=== PATIENT | female | born 1995 | race African-American/Black ===

== ENCOUNTER 2018-12-20 08:05 | Day surgery (SDC) | payer OTHER ==
[~2018-12-20] VITALS: Ht 162.6 cm; Wt 74.8 kg
[~2018-12-20 08:05] MED LIST: CELE1CAP7 PO; IBUP-1022 PO; LOPE1CAP5 PO; LR 1,000 ML IV ONE; ONDA4TAB5 PO; ceFAZolin SOD 2 GM in IV 1 EA IV ONE
[2018-12-20] MEDS ORDERED: LIDOCAINE 1% MDV 20ML VIAL As Ordered ONE (08:09)
[2018-12-20] MEDS ORDERED: BUPIVACAINE HCL 0.5% 10 ML VIAL As Ordered ONE (08:09)
[2018-12-20] MEDS ORDERED: BUPIVACAINE LIPOSOME/PF 1.3% 20ML VIAL (13.3MG/ML)(EXPAREL)(C9290 PER1MG) As Ordered ONE (08:25)
[2018-12-20] MEDS ORDERED: fentaNYL 100 MCG/2 ML INJECTION (J3010) As Ordered ONE (08:46)
[2018-12-20] MEDS ORDERED: LIDOCAINE 2% INJ 100 MG/5 ML SDV (FOR ANES.) As Ordered ONE (08:46)
[2018-12-20] MEDS ORDERED: PROPOFOL 200 MG/20 ML VIAL As Ordered ONE ×2 (08:46→10:47)
[2018-12-20] MEDS ORDERED: dexameTHASONE 4 MG/ML 1ML VIAL (J1100) As Ordered ONE ×2 (08:47→09:43)
[2018-12-20] MEDS ORDERED: ONDANSETRON 4MG/2ML VIAL (J2405) As Ordered ONE (08:47)
[2018-12-20] MEDS ORDERED: MIDAZOLAM INJ 2 MG/2 ML VIAL (J2250) As Ordered ONE (08:47)
--- NOTE | 2018-12-20 12:08 | RO ---
DATE OF PROCEDURE: 12/20/2018 PREPROCEDURE DIAGNOSIS: Right foot bunion. POSTPROCEDURE DIAGNOSIS: Right foot bunion. PROCEDURE: Right foot bunionectomy with first metatarsal osteotomy. SURGEON: Latrell Hummel DPM FLOWER STRIPPER: ANESTHESIA: Monitored anesthesia care with preoperative injection of 15 mL of 1:1 mixture of 1% Lidocaine plain and 0.5% Marcaine plain. ESTIMATED BLOOD LOSS: Minimal. MATERIALS: Arthrex 3.5 headless compression screws, 3-0 and 4-0 Vicryl, 4-0 nylon. INJECTABLES: 1 mL of Decadron 4 mg/mL and 10 mL of Exparel. COMPLICATIONS: None. CONDITION: Stable. INDICATION: Mata Acevedo is a 23-year-old female who presents to the office with painful right bunion. She presents today for surgical correction. DESCRIPTION OF PROCEDURE: The patient, site and side were identified in preoperative holding area. Consent was reviewed. Risks, benefits, complications and alternatives to the procedure were explained to the patient in detail and all questions were answered. DESCRIPTION OF PROCEDURE: The patient was brought to the operating room and laid in supine position on the operating room table. Monitored anesthesia care was delivered by the anesthesia team. Preoperative injection of 15 mL of 1:1 mixture of 1% Lidocaine plain and 0.5% Marcaine plain were injected into the right foot. The right foot was prepped and draped in a normal sterile fashion. Tourniquet was applied to the right ankle and inflated to 250 mmHg. The patient received Ancef preoperatively. Dorsomedial incision was drawn and carried through with a #15 blade. Dissection was carried down through the first metatarsophalangeal joint capsule. Bovie was used to cauterize small vessels along the way. Deep capsulotomy was performed exposing the metatarsal head. Following this, a lateral release was performed releasing the lateral capsule, adductors tendons, as well as ligaments, McGlamry elevator was used to release the plantar structures of the metatarsal head. Following this, the sagittal saw was used to resect the medial eminence and osteotomy was performed in the metatarsal head, transposing it laterally. This was fixated with an Arthrex 3.5 headless compression screw. Bone ledges were resected with sagittal saw and smoothed with a rasp. The site was irrigated with normal saline. A small wedge of capsule was removed from the medical capsule and capsular repair was performed with 3-0 Vicryl. Subcutaneous closure with 4-0 Vicryl. Skin closure with 4-0 nylon. 1 mL of Decadron was injected and 10 mL of Exparel was injected postoperatively. Sterile dressing was applied. The tourniquet was inflated. THe patient was brought to the postanesthesia care unit (PACU) stable and neurovascular status intact. She will be partial weightbearing. She will followup in 2 days.
[2018-12-20 12:15] VITALS: BP 114/56
== END 2018-12-20 12:20 | disposition home or self-care (01) ==
LOC: M SDC 08:05
PROVIDERS: ATTEND Podiatrist Foot & Ankle Surgery
DX: M21.611 Bunion of right foot (principal)
CPT/HCPCS: 28296; 81025; 88300; C1713; C9290; J0690; J1100; J2250; J2405; J3010

== ENCOUNTER 2019-06-03 21:07 | Emergency (ER) | payer OTHER ==
[~2019-06-03] VITALS: Ht 162.6 cm; Wt 73.6 kg
[~2019-06-03 21:07] MED LIST changes: -LR 1,000 ML IV ONE; +ONDA-83 PO; -ONDA4TAB5 PO; -ceFAZolin SOD 2 GM in IV 1 EA IV ONE
[2019-06-03 21:08] VITALS: BP 133/92
[2019-06-03] MEDS ORDERED: DERMABOND TOPICAL SKIN ADHESIVE TOP ONE (21:30)
== END 2019-06-03 21:58 | disposition home or self-care (01) ==
LOC: M ED 21:07
DX: S61.213A Laceration without foreign body of left middle finger without damage to nail, initial encounter (principal); W26.0XXA Contact with knife, initial encounter; Y92.018 Other place in single-family (private) house as the place of occurrence of the external cause

== ENCOUNTER 2020-01-02 13:52 | Emergency (ER) | payer OTHER ==
[~2020-01-02] VITALS: Ht 165.1 cm; Wt 77.0 kg
[2020-01-02] MEDS ORDERED: MIRE1IUD IU (14:33)
[2020-01-02 14:37] LABS: BASO % 0.6 % (0.0-1.0); EOS # 0.1 10^3/uL (0.0-0.5); EOS % 1.9 % (0.0-3.0); HEMOGLOBIN 13.3 g/dl (12.0-15.5); LYMPH # 2.1 10^3/uL (1.5-5.0); LYMPH % 33.1 % (24.0-44.0); MEAN CORPUSCULAR HEMOGLOBIN 30.5 pg (27.0-33.0); MEAN CORPUSCULAR HGB CONC 31.7 g/dl (32.0-36.5); MEAN CORPUSCULAR VOLUME 96.3 fl (80.0-96.0); MONO # 0.6 10^3/uL (0.0-0.8); MONO % 8.8 % (0.0-5.0); NEUTROPHILS # 3.6 10^3/uL (1.5-8.5); NEUTROPHILS % 55.4 % (36.0-66.0); PLATELET COUNT, AUTOMATED 292 10^3/uL (150-450); RED BLOOD COUNT 4.36 10^6/uL (4.00-5.40); WHITE BLOOD COUNT 6.5 10^3/uL (4.0-10.0)
[2020-01-02 14:45] LABS: APPEARANCE, URINE CLEAR (CLEAR); BACTERIA, URINE AUTO NEGATIVE (NEGATIVE); BILIRUBIN, URINE AUTO NEGATIVE (NEGATIVE); BLOOD, URINE BLOOD NEGATIVE (NEGATIVE); COLOR, URINE YELLOW (YELLOW); GLUCOSE, URINE (UA) AUTO NEGATIVE (NEGATIVE); KETONE, URINE AUTO NEGATIVE (NEGATIVE); LEUKOCYTE ESTERASE, URINE AUTO NEGATIVE (NEGATIVE); NITRITE, URINE AUTO NEGATIVE (NEGATIVE); PROTEIN, URINE AUTO NEGATIVE (NEGATIVE); RBC, URINE AUTO 1 /HPF (0-3); SPECIFIC GRAVITY URINE AUTO 1.021 (1.002-1.035); SQUAMOUS EPITHELIAL CELL UR AU 1 /HPF (0-6); UROBILINOGEN, URINE AUTO 0.2 mg/dL (0.0-2.0); WBC, URINE AUTO 0 /HPF (0-3)
--- NOTE | 2020-01-02 15:26 | REP ---
INDICATION: rlq pain/iud in/ ro ectopic. COMPARISON: None. TECHNIQUE: Transabdominal and endovaginal probes are utilized. FINDINGS: The bladder was empty. Uterus is seen anteverted. It measures 9.4 x 3 3.2 x 4.7 cm. There is a central endometrial echogenic stripe with thickness of 4.6 mm. There is an IUD in place. No fluid the endometrial cavity or visible gestational sac, yolk sac or pole. The right ovary is 3.1 x 2.3 x 2.9 cm with Doppler tracings show resistive index 0.40. Within the right ovary is 1.6 x 1.4 x 1.4 cm heterogeneous, hypoechoic focus without color flow. It could be a solid lesion or hemorrhagic follicle. The left ovary is 2 x 1.9 x 1.4 cm. Has Doppler interrogation showed resistive index 0.48. Right ovarian volume 11 cc, left 3 cc. No fluid adjacent either ovary or in the cul-de-sac. IMPRESSION: : 1. An IUD in place with no evidence of a gestational sac, yolk sac, pole or fluid in the endometrial cavity. Do not have an HCG available yet today. The patient stated to the technologist that yesterday it was 49. 2. Right ovary with a 1.6 cm hypoechoic heterogeneous area that could be a solid lesion or other finding such as a hemorrhagic follicle. No adjacent free fluid near the ovaries or in the cul-de-sac. <Electronically signed by Emery Hayes > 01/02/20 [id number]
[2020-01-02 16:16] VITALS: BP 108/68
--- NOTE | 2020-01-02 16:47 | CR.PDOC ---
General Date of Consultation: Jan 02, 2020 Consultation REASON FOR CONSULTATION/CHIEF COMPLAINT: with IUD in place. HISTORY OF PRESENT ILLNESS: 24 yo LMP of 12/01/2019 who presents with right sided abdominal pain and a positive home test. patient had the IUD placed 6 months ago this week she started feeling nausea and took a test (x7) which was positive. today the reports feeling some abdominal pain. she denies any vaginal bleeding. she has no other concerns. ALLERGIES: denies. HOME MEDICATIONS: none PAST MEDICAL HISTORY: Denies PAST SURGICAL HISTORY: 1.Dominguez Downing FAMILY HISTORY: non contributory SOCIAL HISTORY: Marital status Children: 1 Employment: active duty Tobacco use:denies ETOH: denies Illicit drug use: denies IV drug use: denies REVIEW OF SYSTEMS: 12 system review negative PHYSICAL EXAMINATION: VITAL SIGNS: Please see below. GENERAL APPEARANCE: well appearing RESPIRATORY: normal work of breathing CARDIOVASCULAR: regular rate ABDOMEN: non tender to palpation EXTREMITIES: grossly normal GUEST EXPERIENCE SPECIALIST: Normal anatomy of external female genitalia. IUD String noted through the cervical os. the string grasped with forceps and IUD removed entirely without issues. patient tolerated procedure well. LABORATORY DATA: HCG 201. Rads COMPARISON: None. TECHNIQUE: Transabdominal and endovaginal probes are utilized. FINDINGS: The bladder was empty. Uterus is seen anteverted. It measures 9.4 x 3 3.2 x 4.7 cm. There is a central endometrial echogenic stripe with thickness of 4.6 mm. There is an IUD in place. No fluid the endometrial cavity or visible gestational sac, yolk sac or pole. The right ovary is 3.1 x 2.3 x 2.9 cm with Doppler tracings show resistive index 0.40. Within the right ovary is 1.6 x 1.4 x 1.4 cm heterogeneous, hypoechoic focus without color flow. It could be a solid lesion or hemorrhagic follicle. The left ovary is 2 x 1.9 x 1.4 cm. Has Doppler interrogation showed resistive index 0.48. Right ovarian volume 11 cc, left 3 cc. No fluid adjacent either ovary or in the cul-de-sac. IMPRESSION: : 1. An IUD in place with no evidence of a gestational sac, yolk sac, pole or fluid in the endometrial cavity. Do not have an HCG available yet today. The patient stated to the technologist that yesterday it was 49. 2. Right ovary with a 1.6 cm hypoechoic heterogeneous area that could be a solid lesion or other finding such as a hemorrhagic follicle. No adjacent free fluid near the ovaries or in the cul-de-sac ASSESSMENT/PLAN: 24 yo LMP of 12/01/2019 with of Unknown loca tion who get with Mirena IUD in Place. hemodynamically stable. benign abdominal exam- not surgical. normal vitals. 1. with IUD in place- The IUD was removed without issues in the ED. Discussed with patient that she is at increased risk of having an ectopic because she had her IUD when she become . US today without IUP ( Which is expected with a quant level of 201), and saw a possible hemorrhagic cyst on the right side. discussed with patient that importance of her coming to her F/U appointment of Tuesday to f/u her Quant. LAB ORDER SENT for patient to obtain before she is comes for her appointment on Tuesday. she expressed understanding. 2. Abdominal pain- non surgical abdomen. okay to continue monitoring at home.. 3. F/U in 48hrs Vital Signs/I&O Vital Signs Date Time Temp Pulse Resp B/P (MAP) Pulse Ox O2 Delivery O2 Flow Rate FiO2 01/02/20 16:16 97.8 53 18 108/68 (81) 100 Room Air Laboratory Data Labs 24H Laboratory Tests 2 01/02/20 14:28: Immature Granulocyte % (Auto) 0.2, Neutrophils (%) (Auto) 55.4, Lymphocytes (%) (Auto) 33.1, Monocytes (%) (Auto) 8.8H, Eosinophils (%) (Auto) 1.9, Basophils (%) (Auto) 0.6, Neutrophils # (Auto) 3.6, Lymphocytes # (Auto) 2.1, Monocytes # (Auto) 0.6, Eosinophils # (Auto) 0.1, Basophils # (Auto) 0.0, Nucleated Red Blood Cells % (auto) 0.0, Human Chorionic Gonadotropin, Quant 201 01/02/20 14:34: Urine Color YELLOW, Urine Appearance CLEAR, Urine pH 6.0, Urine Specific [place] 1.021, Urine Protein NEGATIVE, Urine Glucose (Auto)(UA) NEGATIVE, Urine Ketones (Auto) NEGATIVE, Urine Blood NEGATIVE, Urine Nitrite NEGATIVE, Urine Bilirubin NEGATIVE, Urine Urobilinogen 0.2, Urine Leukocyte Esterase (Auto) NEGATIVE, Urine WBC (Auto) 0, Urine RBC (Auto) 1, Urine Hyaline Casts (Auto) 0, Urine Bacteria (Auto) NEGATIVE, Urine Squamous Epithelial Cells 1, Urine Sperm (Auto) CBC/BMP Laboratory Tests 01/02/20 14:28 Microbiology Microbiology 01/02/20 Urine Culture, Received Pending Allergies Coded Allergies: No Known Allergies (Unverified , 12/13/18) Home Medications Miscellaneous Medications Levonorgestrel (Mirena) 1 Each Iud, 20 MCG IU, (Reported) COOPER FALCON MD Jan 02, 2020 16:47
== END 2020-01-02 16:19 | disposition home or self-care (01) ==
LOC: M ED 13:52
DX: O99.891 Other specified diseases and conditions complicating pregnancy (principal); R10.2 Pelvic and perineal pain; Z97.5 Presence of (intrauterine) contraceptive device; Z77.098 Contact with and (suspected) exposure to other hazardous, chiefly nonmedicinal, chemicals; Z3A.00 Weeks of gestation of pregnancy not specified

== ENCOUNTER 2020-08-18 09:46 | Emergency (ER) | payer OTHER ==
[~2020-08-18] VITALS: Ht 162.6 cm; Wt 79.8 kg
[~2020-08-18 09:46] MED LIST changes: +MIRE1IUD IU
[2020-08-18 10:37] LABS: BASO % 0.6 % (0.0-1.0); EOS # 0.3 10^3/uL (0.0-0.5); EOS % 5.7 % (0.0-3.0); HEMATOCRIT 42.5 % (36.0-47.0); HEMOGLOBIN 13.4 g/dl (12.0-15.5); LYMPH % 40.3 % (24.0-44.0); MEAN CORPUSCULAR HGB CONC 31.5 g/dl (32.0-36.5); MEAN CORPUSCULAR VOLUME 95.3 fl (80.0-96.0); MONO # 0.4 10^3/uL (0.0-0.8); NEUTROPHILS # 2.2 10^3/uL (1.5-8.5); PLATELET COUNT, AUTOMATED 245 10^3/uL (150-450); RED BLOOD COUNT 4.46 10^6/uL (4.00-5.40); WHITE BLOOD COUNT 4.9 10^3/uL (4.0-10.0)
[2020-08-18 11:05] LABS: BLOOD UREA NITROGEN 9 MG/DL (7-18); CALCIUM LEVEL 8.8 MG/DL (8.5-10.1); CARBON DIOXIDE LEVEL 26 MEQ/L (21-32); CHLORIDE LEVEL 107 MEQ/L (98-107); CREATININE FOR GFR 0.62 MG/DL (0.55-1.30); GLOMERULAR FILTRATION RATE > 60.0 (>60); GLUCOSE, FASTING 93 MG/DL (70-100); POTASSIUM SERUM 4.1 MEQ/L (3.5-5.1); SODIUM LEVEL 138 MEQ/L (136-145)
--- NOTE | 2020-08-18 11:32 | REP ---
INDICATION: heavy vaginal bleeding 2 weeks COMPARISON: None. TECHNIQUE: Transabdominal pelvic ultrasound followed by transvaginal examination for better evaluation of the endometrium and adnexa with color Doppler evaluation of the ovaries. FINDINGS: Bladder is unremarkable and measures 5.3 x 4.7 x 9.0 cm. Heterogeneous anteverted uterus measures 8.8 x 3.5 x 4.7 cm. The endometrial complex measures 13 mm thickness thickness. A 6 x 5 x 5 mm endometrial polyp cannot be excluded. Bilateral ovaries are normal in appearance and vascularity without evidence for torsion. Right ovary measures 3.9 x 2.3 x 2.5 cm; R I = 0.62. Left ovary measures 2.8 x 1.9 x 2.1 cm; R I = 0.38. No pelvic fluid or adnexal mass lesion IMPRESSION: 1. Possible 6 mm endometrial polyp. 2. Otherwise normal appearance to the uterus and bilateral ovaries. No evidence for torsion. <Electronically signed by Lex Rodriguez > 08/18/20 [id number]
[2020-08-18] MEDS ORDERED: PROV10TA PO (11:49)
[2020-08-18 12:01] VITALS: BP 124/69
== END 2020-08-18 12:02 | disposition home or self-care (01) ==
LOC: M ED 09:46
DX: N93.8 Other specified abnormal uterine and vaginal bleeding (principal); N84.0 Polyp of corpus uteri; Z77.098 Contact with and (suspected) exposure to other hazardous, chiefly nonmedicinal, chemicals

== ENCOUNTER 2020-09-01 15:03 | Emergency (ER) | payer OTHER ==
[~2020-09-01] VITALS: Ht 162.6 cm; Wt 80.4 kg
[~2020-09-01 15:03] MED LIST changes: +PROV10TA PO
[2020-09-01 18:28] LABS: BASO # 0.1 10^3/uL (0.0-0.2); BASO % 0.8 % (0.0-1.0); EOS # 0.2 10^3/uL (0.0-0.5); EOS % 3.7 % (0.0-3.0); HEMOGLOBIN 12.3 g/dl (12.0-15.5); LYMPH # 2.6 10^3/uL (1.5-5.0); LYMPH % 39.3 % (24.0-44.0); MEAN CORPUSCULAR HEMOGLOBIN 30.1 pg (27.0-33.0); MEAN CORPUSCULAR HGB CONC 31.5 g/dl (32.0-36.5); MEAN CORPUSCULAR VOLUME 95.4 fl (80.0-96.0); MONO # 0.6 10^3/uL (0.0-0.8); MONO % 9.2 % (2.0-8.0); NEUTROPHILS % 46.7 % (36.0-66.0); PLATELET COUNT, AUTOMATED 263 10^3/uL (150-450); RED BLOOD COUNT 4.09 10^6/uL (4.00-5.40); WHITE BLOOD COUNT 6.5 10^3/uL (4.0-10.0)
[2020-09-01] MEDS ORDERED: PROV10TA PO (19:52)
[2020-09-01 19:53] VITALS: BP 124/79
== END 2020-09-01 20:04 | disposition home or self-care (01) ==
LOC: M ED 15:03
DX: N93.8 Other specified abnormal uterine and vaginal bleeding (principal)

== ENCOUNTER 2020-10-29 08:23 | Day surgery (SDC) | payer OTHER ==
[~2020-10-29] VITALS: Ht 165.1 cm; Wt 79.4 kg
[~2020-10-29 08:23] MED LIST changes: +LR 1,000 ML IV ONE
[2020-10-29 09:09] LABS: HEMATOCRIT 39.3 % (36.0-47.0); HEMOGLOBIN 12.6 g/dl (12.0-15.5); MEAN CORPUSCULAR HEMOGLOBIN 30.1 pg (27.0-33.0); MEAN CORPUSCULAR HGB CONC 32.1 g/dl (32.0-36.5); MEAN CORPUSCULAR VOLUME 93.8 fl (80.0-96.0); PLATELET COUNT, AUTOMATED 274 10^3/uL (150-450); RED BLOOD COUNT 4.19 10^6/uL (4.00-5.40); WHITE BLOOD COUNT 5.3 10^3/uL (4.0-10.0)
[2020-10-29] MEDS ORDERED: propofoL 200 MG/20 ML VIAL As Ordered ONE (09:34)
[2020-10-29] MEDS ORDERED: LIDOCAINE 2% 100MG/5ML SDV (FOR ANES.) As Ordered ONE (09:34)
[2020-10-29] MEDS ORDERED: ONDANSETRON 4MG/2ML VIAL As Ordered ONE (09:35)
[2020-10-29] MEDS ORDERED: MIDAZOLAM INJ 2MG/2ML VIAL (J2250 PER 1MG) As Ordered ONE (09:35)
[2020-10-29] MEDS ORDERED: dexameTHASONE 4 MG/ML 1ML VIAL (J1100 PER 1MG) As Ordered ONE (09:35)
[2020-10-29] MEDS ORDERED: KETOROLAC 60MG 2ML VIAL As Ordered ONE (09:35)
[2020-10-29] MEDS ORDERED: fentaNYL 100 MCG/2 ML INJECTION (J3010) As Ordered ONE (09:35)
[2020-10-29 09:37] LABS: HCG, SERUM QUALITATIVE NEGATIVE (NEGATIVE)
[2020-10-29] MEDS ORDERED: ESMOLOL INJ 100MG/10ML VIAL As Ordered ONE (10:43)
[2020-10-29] MEDS ORDERED: LEVONORGESTREL 52MG (MIRENA) IUD As Ordered ONE (11:50)
--- NOTE | 2020-10-29 13:12 | ROOPDOC ---
[facility] Report Of Operation Report of Operation DATE OF PROCEDURE: 10/29/20 PREPROCEDURE DIAGNOSES: Abnormal uterine bleeding, question endometrial polyp POSTPROCEDURE DIAGNOSES: Abnormal uterine bleeding, normal endometrial cavity PROCEDURE PERFORMED: Diagnostic hysteroscopy, endometrial curettage, Mirena Intrauterine device insertion SURGEON: Sarwat Shetty DO, FACOG COLOR CHECKER ROVING OR YARN: None ANESTHESIA: General ESTIMATED BLOOD LOSS: Approximately 3 mL. ANTIBIOTICS: None indicated IV FLUIDS: 700ml LR URINE OUTPUT: 50ml via straight cath COMPLICATIONS: None. FINDINGS: Normal appearing endometrial cavity with no evidence of polyp. Tubal ostia visualized bilaterally. SPECIMENS REMOVED: Endometrial curettings MIRENA LOT #: [id number] DESCRIPTION OF PROCEDURE: The risks, benefits, indications, and alternatives of the procedure were reviewed with the patient and informed consent was obtained. The patient was taken to the operating room where general anesthesia was obtained without difficulty. The patient was then placed in the lithotomy position using Gel padded River stirrups. An exam under anesthesia was then performed and was notable for a midline, mobile, 8-week sized anteverted uterus. The patient was then prepped and draped in the usual sterile fashion and the bladder was drained using an in-and-out catheter. A sterile speculum was placed into the patients vagina and the cervix was visualized. A single toothed tenaculum was used to grasp the anterior lip of the cervix. A uterine sound was gently placed into the uterus, which sounded to 8 cm in length. The cervix did not require dilation. The hysteroscope was first primed. The hysteroscope was then advanced through the endocervical canal under direct visualization. After distension of the uterus with warm saline, a systematic examination of the intrauterine cavity was performed. No intrauterine lesions, polyps, or abnormalities were noted and the tubal ostia were visualized bilaterally. A gentle, sharp curettage was then performed until a uterine cri was noted in all planes. Tissue obtained was sent to pathology for review. The Mirena IUD was then opened on the field. The uterine cavity length was set and the Mirena IUD was inserted into the uterus without difficulty per the plastic molding operator's guidelines. The strings were cut 3cm from the external os. The cervix was noted to be hemostatic. The single toothed tenaculum was then removed from the anterior lip of the cervix. The tenaculum sites were noted to be hemostatic. All instruments were then removed from the patients vagina. Hysteroscopic fluid deficit was noted to be minimal. The patient tolerated the procedure well. At the completion of the case the sponge, instrument, and needle counts were correct x 2. The patient was awakened from anesthesia and taken to the PACU in stable condition. SARWAT SHETTY DO Oct 29, 2020 13:12
[2020-10-29] MEDS ORDERED: ONDANSETRON 4MG/2ML VIAL IV PRN (13:20)
[2020-10-29] MEDS ORDERED: KETOROLAC 30 MG/ML 1ML VIAL IV PRN (13:20)
[2020-10-29] MEDS ORDERED: fentaNYL 100 MCG/2 ML INJECTION (J3010) IV PRN (13:20)
[2020-10-29] MEDS ORDERED: METOCLOPRAMIDE INJ 10MG/2ML VIAL (J2765 PER 1) IV PRN (13:20)
[2020-10-29] MEDS ORDERED: LR 1,000 ML IV SCH (13:20)
[2020-10-29] MEDS ORDERED: PERCOCET 5MG/325MG TAB PO PRN (13:20)
[2020-10-29 13:55] VITALS: BP 117/71
== END 2020-10-29 14:05 | disposition home or self-care (01) ==
LOC: M SDC 08:23
PROVIDERS: ATTEND Obstetrics & Gynecology
DX: N85.8 Other specified noninflammatory disorders of uterus (principal); N93.9 Abnormal uterine and vaginal bleeding, unspecified; F32.9 Major depressive disorder, single episode, unspecified; Z79.3 Long term (current) use of hormonal contraceptives
CPT/HCPCS: 36415; 58300; 58558; 84703; 85027; 88305; J1100; J1885; J2250; J2405; J3010; J7298

== ENCOUNTER 2020-11-17 20:28 | Emergency (ER) | payer OTHER ==
[~2020-11-17] VITALS: Ht 165.1 cm; Wt 81.3 kg
[~2020-11-17 20:28] MED LIST changes: -LR 1,000 ML IV ONE
[2020-11-17 20:29] VITALS: BP 139/81
== END 2020-11-17 22:16 | disposition left against medical advice (07) ==
LOC: M ED 20:28
DX: Z53.29 Procedure and treatment not carried out because of patient's decision for other reasons (principal)